=== PATIENT | female | born 1955 | race Caucasian/White ===

== ENCOUNTER → 2018-11-07 13:35 | Outpatient (CLI) | payer BC, OTHER, SELFPAY ==
--- NOTE | 2018-11-07 | DI.US.S_ITS ---
PROCEDURE: US ARTERIAL DUPLEX LE BI INDICATIONS: Peripheral vascular disease, unspecified. Left leg pain. TECHNIQUE: Color and pulse Doppler interrogation was performed of both lower extremity arterial systems, with image documentation. COMPARISON: None. FINDINGS: Right lower extremity: Common femoral artery: 165 cm/sec, with triphasic flow. Deep femoral artery: 90 cm/sec, with triphasic flow. Proximal superficial femoral artery: 109 cm/sec, with triphasic flow. Mid superficial femoral artery: 126 cm/sec, with triphasic flow. Distal superficial femoral artery: 93 cm/sec, with triphasic flow. Popliteal artery: 80 cm/sec, with triphasic flow. Posterior tibial artery: 122 cm/sec, with triphasic flow. Anterior tibial artery/dorsalis pedis: 87 cm/sec, with triphasic flow. Nixon-scale imaging description: No significant stenosis Left lower extremity: Common femoral artery: 183 cm/sec, with triphasic flow. Deep femoral artery: 96 cm/sec, with triphasic flow. Proximal superficial femoral artery: 135 cm/sec, with triphasic flow. Mid superficial femoral artery: 125 cm/sec, with triphasic flow. Distal superficial femoral artery: 106 cm/sec, with triphasic flow. Popliteal artery: 82 cm/sec, with triphasic flow. Posterior tibial artery: 105 cm/sec, with triphasic flow. Anterior tibial artery/dorsalis pedis: 95 cm/sec, with triphasic flow. Nixon-scale imaging description: No significant stenosis IMPRESSION: No significant arterial disease in either lower extremity from the inguinal ligament to the ankles. Dictated by: Melvin Lino M.D. on 11/07/2018 at 16:01 Approved by: Melvin Lino M.D. on 11/07/2018 at 16:05
== END ==
PROVIDERS: PCP Family Medicine; Visit Provider Family Medicine
DX: I73.9 Peripheral vascular disease, unspecified (principal); M79.605 Pain in left leg
CPT/HCPCS: 93925

== ENCOUNTER → 2021-09-27 10:19 | Outpatient (CLI) | payer BC, MEDICARE, OTHER, SELFPAY ==
[2021-09-27 11:09] LABS: Add Manual Diff / Slide Review NO; Basophils Absolute Auto 100 /uL (0-100); Basophils Percent Auto 1.3 % (0-2); Eosinophils Absolute Auto 100 /uL (0-450); Eosinophils Percent Auto 1.3 % (2-4); Hematocrit 38.7 % (36-46); Hemoglobin 13.2 g/dL (12.0-16.0); Lymphocytes Absolute Auto 1800 /uL (1100-4500); Mean Corpuscular Hemoglobin 30.5 PG (26-34); Mean Corpuscular Volume 89.7 fL (80-100); Monocytes Absolute Auto 500 /uL (0-900); Monocytes Percent Auto 7.4 % (3-14); Neutrophils Absolute Auto 4100 /uL (1500-7000); Platelet Count 245 X10^3/uL (150-400); Red Blood Cell Count 4.31 X10^6/uL (4.0-5.2); Red Cell Distribution Width 14.9 % (11.6-14.8); White Blood Cell Count 6.6 X10^3/uL (4.5-11.0)
[2021-09-27 11:19] LABS: Hemoglobin A1C% w Est Avg Glu 6.7 % (4.0-6.0)
[2021-09-27 11:37] LABS: BUN Creatinine Ratio 14.3 (6-22); Blood Urea Nitrogen 13 mg/dL (7-17); Calcium 9.8 mg/dL (8.4-10.2); Carbon Dioxide 28 mmol/L (22-32); Chloride 107 mmol/L (98-107); Estimated Glomerular Filt Rate > 60.0 mL/min (>60); Glucose 115 mg/dL (80-110); HEMOLYSIS < 15 (0-50); Potassium 4.2 mmol/L (3.4-5.1); Sodium 141 mmol/L (137-145)
[2021-09-27 12:00] LABS: Appearance Urine UA CLEAR; Bilirubin Urine UA NEGATIVE (NEGATIVE); Glucose Urine UA NEGATIVE (Negative); Ketones Urine UA NEGATIVE (NEGATIVE); Leukocyte Esterase Urine UA NEGATIVE (NEGATIVE); Nitrite Urine UA NEGATIVE (Negative); Occult Blood Urine UA TRACE-LYSED (Negative); Protein Urine UA NEGATIVE (Negative); Specific Gravity Urine UA <=1.005 (1.000-1.035); Urobilinogen Urine UA 0.2 E.U./dL (0.2)
[2021-09-27 12:03] LABS: Color Urine UA Straw; pH Urine UA 6.5 (4.5-8.0)
[2021-09-27 12:25] LABS: RBC Urine 0-1/HPF (0-5/HPF); Squamous Epithelial Cell Urine 1-5 /HPF (0-5/HPF); WBC Urine None Seen (0-5/HPF)
[2021-09-27 12:26] LABS: Bacteria Urine Occasional (0-1); Culture Indicated Urine Cult Not Indicated
== END ==
LOC: PUL 10:26 → RESP 10:32
PROVIDERS: PCP Family Medicine; Referring Provider Orthopaedic Surgery; Visit Provider Orthopaedic Surgery
DX: Z01.812 Encounter for preprocedural laboratory examination (principal); R73.9 Hyperglycemia, unspecified; N39.0 Urinary tract infection, site not specified
CPT/HCPCS: 36415; 80048; 81001; 83036; 85025; 93005

== ENCOUNTER → 2022-03-05 14:38 | Outpatient (CLI) | payer BC, MEDICARE, OTHER, SELFPAY ==
--- NOTE | 2022-03-05 | DI.US.S_ITS ---
PROCEDURE: US PERIPH VENOUS LOW EXTREM RT INDICATIONS: RIGHT LEG AND RIGHT KNEE PAIN TECHNIQUE: Real-time imaging, as well as color and pulse Doppler interrogation, were performed of the lower extremity deep veins from the inguinal ligament to the popliteal fossa. COMPARISON: None. FINDINGS: The common femoral, femoral and popliteal veins are normally compressible, and free of intraluminal thrombus. Color and pulse Doppler demonstrate normal phasic intraluminal flow. There is normal augmentation response to distal compression maneuver. There is a 4.0 x 1.2 x 1.6 cm avascular cystic lesion within the right popliteal fossa. IMPRESSION: 1. No deep vein thrombosis of the right lower extremity. 2. De La O's cyst. Dictated by: Una Ceron M.D. on 03/05/2022 at 16:13 Approved by: Una Ceron M.D. on 03/05/2022 at 16:14
== END ==
PROVIDERS: PCP Nurse Practitioner Family; Referring Provider Physician Assistant Medical; Visit Provider Physician Assistant Medical
DX: M24.661 Ankylosis, right knee (principal); M71.21 Synovial cyst of popliteal space [Baker], right knee
CPT/HCPCS: 93971

== ENCOUNTER 2023-06-06 08:38 | Day surgery (SDC) | payer MEDICARE, OTHER, SELFPAY ==
--- NOTE | 2023-06-06 | PATH_ITS ---
[facility] Accession Number: [id number] No. of containers..01 Tissue . 01 Material submitted: . sigmoid colon - SIGMOID POLYP . 01 Diagnosis: COLON, SIGMOID, POLYP BIOPSY: - Benign polypoid colonic mucosa with unremarkable histology. - Negative for dysplasia despite multiple levels assessment. TXN 06/12/2023 1009 Local . 01 Electronically signed: . Tawfelasha Kruse MD, Pathologist NPI- [id number] . 01 Gross description: . SIGMOID POLYP: Received in formalin is 1 fragment(s) of berkowitz, soft tissue measuring 1.0 x 0.5 x 0.2 cm submitted entirely in 1 cassette(s) /AAY 06/08/2023 0153 Local . 01 Pathologist provided ICD-10: Z12.11 . 01 CPT . 320554 Performed at: 01 [facility] [address] [place] [address] [id number] MD Carlos Marie MD Phone: [phone]
[2023-06-06] MEDS: LACTATED RINGERS 1,000 ML 100 ML IV (09:04)
[2023-06-06 09:10] VITALS: BP 164/62; PULSE 68; RESP 18; TEMP 36.5; O2SAT 99; BMI 39.4
[2023-06-06] MEDS: METOPROLOL IR 25 MG TABLET PO (09:45)
--- NOTE | 2023-06-06 10:13 | P.HP_ITS ---
History of Present Illness History of Present Illness Date Patient Seen: 06/06/23 Time Patient Seen: 10:14 Chief complaint: Colonoscopy Narrative: Madison is a 67-year-old woman who is here for colonoscopy. Her last 1 was about 12 years ago and was normal. No family history of colon cancer. [facility] Social History household members: spouse Smoking Status: Former smoker alcohol intake: current Meds Home Medications and Allergies Home Medications Medication Instructions Recorded Confirmed Type atorvastatin 80 mg tablet 80 mg PO DAILY 06/06/23 06/06/23 History lisinopril 20 mg tablet 20 mg PO DAILY 06/06/23 06/06/23 History metformin 500 mg tablet 500 mg PO BID 06/06/23 06/06/23 History metformin 500 mg tablet,extended 500 mg PO BID 06/06/23 06/06/23 History release 24 hr metoprolol tartrate 50 mg tablet 50 mg PO BID 06/06/23 06/06/23 History Allergies Allergy/AdvReac Type Severity Reaction Status Date / Time prednisone AdvReac Intermediate Hypertensio Verified 06/06/23 09:05 n Exam Vital Signs (past 8 hours): - 06/06/23 09:10 Temperature 97.7 F Pulse Rate 68 Respiratory Rate 18 Blood Pressure 164/62 H Pulse Oximetry 99 Oxygen Delivery Method Room Air Oxygen Delivery Method Room Air Resp Effort & Inspection: normal respiratory effort Assessment & Plan Assessment and plan (1) Colon cancer screening: Status: Acute Plan We reviewed the risks and benefits of colonoscopy for colon cancer screening and she would like to proceed.
--- NOTE | 2023-06-06 10:36 | PM.OP.COLON ---
Operative Date/Time/Diagnoses Date of procedure: 06/06/23 Time of procedure: 10:36 Pre-op diagnosis: Colon cancer screening Post-op diagnosis: same Procedure & Clinicians Study performed: Colonoscopy Same procedure as scheduled: Yes Surgeon: Igor Swanson Procedure Notes Procedure in detail: Surgeon: Igor Swanson MD Anesthesia: Hazel Manolo Procedure: The patient was brought to the endoscopy suite, placed in left lateral decubitus position. The patient was connected to monitoring devices. A time-out was performed. Sedation was administered. Once the patient was adequately sedated, a digital rectal exam was performed and was normal. The scope was then inserted and advanced to the cecum where the appendiceal orifice was identified and photographed. The scope was then slowly withdrawn over greater than 6 minutes. The mucosa was thoroughly inspected. There was a 5 mm polyp in the sigmoid colon removed with a cold snare. The scope was retroflexed in the rectum. No other abnormalities were seen. The scope was straightened and removed. The patient was awakened and brought to recovery. Scope withdrawal time: 8 minutes Sedation time: 12 minutes EBL: 5 mL Findings: 5 mm polyp in the sigmoid colon Post-procedure Disposition: PACU
[2023-06-06 10:41] VITALS: BP 119/64; PULSE 51; RESP 16; TEMP 36.2; O2SAT 98
[2023-06-06 10:46] VITALS: BP 119/64; PULSE 54; RESP 16; O2SAT 98
[2023-06-06 10:52] VITALS: BP 133/66; PULSE 56; RESP 16; TEMP 36.2; O2SAT 98
== END 2023-06-06 11:01 | disposition home or self-care (01) ==
PROVIDERS: PCP Nurse Practitioner Family; Referring Provider Surgery; Visit Provider Surgery
PROC: 0DJD8ZZ Inspection of Lower Intestinal Tract, Via Natural or Artificial Opening Endoscopic (ICD-10-PCS; CPT 45378; principal; 2023-06-06 09:45)
DX: Z12.11 Encounter for screening for malignant neoplasm of colon (principal); K63.5 Polyp of colon
CPT/HCPCS: 45385; J2704